=== PATIENT | female | born 1995 | race Caucasian/White ===

== ENCOUNTER 2018-10-04 19:15 | Emergency (ER) | payer MEDICAID, OTHER ==
[~2018-10-04] VITALS: Ht 162.6 cm; Wt 98.9 kg
[2018-10-04] MEDS ORDERED: ONDANSETRON 4 MG/2 ML (SDV) Z0FRAN IVP STA (19:39)
[2018-10-04] MEDS ORDERED: APAP 300 MG/CODEINE 30 MG (TYLENOL #3) TAB PO STA (19:39)
[2018-10-04] MEDS ORDERED: NS IV 1000 ML 1,000 ML IV SCH (19:45)
--- NOTE | 2018-10-04 20:00 | NUR ---
PT. REPORTED SHE HAS HAD CONTRACTIONS FOR 2 DAYS 5 MIN. APART LASTING 1 MIN. SHE REPORTED SHE WAS DILATED TO A 1 ON FRIDAY.
[2018-10-04 20:02] LABS: HEMATOCRIT 33 % (35-52); HEMOGLOBIN 10.4 G/DL (11.5-16.0); MEAN CORPUSCULAR HEMOGLOBIN 27 PG (25-34); MEAN CORPUSCULAR VOLUME 86 FL (80-99)
[2018-10-04 20:03] LABS: BASOPHILS % (AUTO) 0 % (0-10); EOSINOPHILS % (AUTO) 0 % (0-10); LYMPHOCYTES # (AUTO) 2.1 X 10^3 (1.0-4.0); LYMPHOCYTES % (AUTO) 30 % (12-44); MEAN CORPUSCULAR HGB CONC 32 G/DL (32-36); MEAN PLATELET VOLUME 13.4 FL (7.4-10.4); MONOCYTES # (AUTO) 0.6 X 10^3 (0.0-1.0); MONOCYTES % (AUTO) 8 % (0-12); NEUTROPHILS # (AUTO) 4.3 X 10^3 (1.8-7.8); NEUTROPHILS % (AUTO) 61 % (42-75); PLATELET COUNT 166 10^3/uL (130-400); RED CELL DISTRIBUTION WIDTH 13.4 % (10.0-14.5)
--- NOTE | 2018-10-04 20:03 | ED General ---
General Chief Complaint: Abdominal/GI Problems Stated Complaint: VOMITTING Nursing Triage Note: PT. WAS BROUGHT IN BY EMS WITH THE C/O VOMITING FOR 2 DAYS. THE PATIENT IS 39 WEEKS . SHE HAD C/O BEING SOB. PT REPORTS SHE HAS ANXIETY AND DEPRESSION AND GEST. DIABETIC HER HISTORY. PT. WAS FOUND SITTING ON THE BATHROOM FLOOR STATED SHE HAD VOMITED AND HAD PASSED OUT HITTING HER FOREHEAD ON THE TOILET. PT. C/O ABD PAIN. FHR WAS 140 UPON ARRIVAL. Nursing Sepsis Screen: No Definite Risk Source of Information: Patient History of Present Illness Date Seen by Provider: Oct 04, 2018 Time Seen by Provider: 19:15 Initial Comments 23-year-old female presenting with complaints of feeling short of breath and vomiting for the last 2 days. She states that she cannot keep anything down. However here she has had no vomiting in the emergency department. She also feels that she is having contractions in the last few days. She denies having any gush of fluid or bleeding from the vaginal area. She is continuing to feel the baby move. She denies any pain with urination. She has had no fever or chills. She states that she has been taking Zofran at home but it has not been helping. She last saw Dr. Mendieta and was only dilated centimeter. Allergies and Home Medications Allergies Coded Allergies: No Known Drug Allergies (Unverified , 10/04/18) Patient Home Medication List Home Medication List Reviewed: Yes Review of Systems Review of Systems Constitutional: No chills, No fever; weakness (generalized) EENTM: no symptoms reported Respiratory: No hemoptysis, No orthopnea, No phlegm; short of breath; No stridor, No wheezing Cardiovascular: no symptoms reported; No palpitations Gastrointestinal: abdominal pain (over her uterus), diarrhea, nausea, vomiting Genitourinary: no symptoms reported; No decreased output, No discharge, No dysuria, No frequency, No hematuria, No hesitancy, No incontinence, No nocturia Expected Date of Delivery: Oct 24, 2018 Musculoskeletal: no symptoms reported Skin: no symptoms reported Psychiatric/Neurological: No Symptoms Reported Hematologic/Lymphatic: No Symptoms Reported Immunological/Allergic: no symptoms reported Past Lsifqgo-Kdymlh-Jxadez Hx Past Med/Social Hx: Reviewed Nursing Past Med/Soc Hx Patient Social History Recent Foreign Travel: No Contact w/Someone Who Travel: No Recent Infectious Disease Expo: No Past Medical History : Yes Expected Date of Delivery: Oct 24, 2018 Hx : 3 Hx Para: 1 Hx Total # of Abortions (Sp): 1 Physical Exam Vital Signs Vital Signs - First Documented 10/04/18 19:20 Temp 97.3 Pulse 88 Resp 24 B/P (MAP) 149/82 (104) Pulse Ox 100 O2 Delivery Room Air Capillary Refill : Less Than 3 Seconds Height, Weight, BMI Height: 5'4.00" Weight: 218lbs. oz. 98.330235lp; BMI Method:Stated General Appearance: WD/WN, Anxious HEENT: PERRL/EOMI, Normal ENT Inspection, Pharynx Normal, Moist Mucous Membranes Neck: Full Range of Motion, Normal Inspection, Non Tender, Supple Respiratory: Chest Non Tender, Lungs Clear, Normal Breath Sounds, No Accessory Muscle Use, No Respiratory Distress Cardiovascular: Regular Rate, Rhythm, Normal Peripheral Pulses Gastrointestinal: Normal Bowel Sounds, No Organomegaly, Soft, Other (gravid uterus that is tender to palpation) Back: Normal Inspection, No CVA Tenderness, No Vertebral Tenderness Extremity: Normal Capillary Refill, Normal Inspection, Non Tender, No Calf Tenderness Neurologic/Psychiatric: Alert, Oriented x3, No Motor/Sensory Deficits Skin: Normal Color, Warm/Dry Progress/Results/Core Measures Suspected Sepsis Recent Fever Within 48 Hours: No Infection Criteria Present: None New/Unexplained Altered Menta: No Sepsis Screen: No Definite Risk SIRS Temperature:97.3 Pulse: 88 Respiratory Rate: 24 Laboratory Tests 10/04/18 19:50: White Blood Count 7.0 Blood Pressure 149 /82 Mean: 104 Laboratory Tests 10/04/18 19:50: Creatinine 0.65, Platelet Count 166, Total Bilirubin 0.8 Results/Orders Lab Results Laboratory Tests Test 10/04/18 19:50 Range/Units White Blood Count 7.0 4.3-11.0 10^3/uL Red Blood Count 3.80 L 4.35-5.85 10^6/uL Hemoglobin 10.4 L 11.5-16.0 G/DL Hematocrit 33 L 35-52 % Mean Corpuscular Volume 86 80-99 FL Mean Corpuscular Hemoglobin 27 25-34 PG Mean Corpuscular Hemoglobin Concent 32 32-36 G/DL Red Cell Distribution Width 13.4 10.0-14.5 % Platelet Count 166 130-400 10^3/uL Mean Platelet Volume 13.4 H 7.4-10.4 FL Neutrophils (%) (Auto) 61 42-75 % Lymphocytes (%) (Auto) 30 12-44 % Monocytes (%) (Auto) 8 0-12 % Eosinophils (%) (Auto) 0 0-10 % Basophils (%) (Auto) 0 0-10 % Neutrophils # (Auto) 4.3 1.8-7.8 X 10^3 Lymphocytes # (Auto) 2.1 1.0-4.0 X 10^3 Monocytes # (Auto) 0.6 0.0-1.0 X 10^3 Eosinophils # (Auto) 0.0 0.0-0.3 10^3/uL Basophils # (Auto) 0.0 0.0-0.1 10^3/uL Sodium Level 140 135-145 MMOL/L Potassium Level 3.9 3.6-5.0 MMOL/L Chloride Level 102 98-107 MMOL/L Carbon Dioxide Level 22 21-32 MMOL/L Anion Gap 16 H 5-14 MMOL/L Blood Urea Nitrogen 4 L 7-18 MG/DL Creatinine 0.65 0.60-1.30 MG/DL Estimat Glomerular Filtration Rate > 60 BUN/Creatinine Ratio 6 Glucose Level 82 70-105 MG/DL Calcium Level 8.8 8.5-10.1 MG/DL Corrected Calcium 9.6 8.5-10.1 MG/DL Total Bilirubin 0.8 0.1-1.0 MG/DL Aspartate Amino Transf (AST/SGOT) 25 5-34 U/L Alanine Aminotransferase (ALT/SGPT) 21 0-55 U/L Alkaline Phosphatase 424 H 40-136 U/L Total Protein 5.9 L 6.4-8.2 GM/DL Albumin 3.0 L 3.2-4.5 GM/DL Lipase 25 8-78 U/L My Orders Orders - ELIU ROMANO MD Comprehensive Metabolic Panel (10/04/18 19:39) Lipase (10/04/18 19:39) Ua Culture If Indicated (10/04/18 19:39) Ed Iv/Invasive Line Start (10/04/18 19:39) Cbc With Automated Diff (10/04/18 19:39) Ns Iv 1000 Ml (Sodium Chloride 0.9%) (10/04/18 19:45) Ondansetron Injection (Zofran Injectio (10/04/18 19:39) Acetaminophen/Codeine Tablet (Tylenol W/ (10/04/18 19:39) Vital Signs/I&O 10/04/18 10/04/18 19:20 20:42 Temp 97.3 97.3 Pulse 88 88 Resp 24 24 B/P (MAP) 149/82 (104) 144/82 (102) Pulse Ox 100 100 O2 Delivery Room Air Room Air 10/05/18 00:00 Intake Total 400 ml Balance 400 ml Capillary Refill : Less Than 3 Seconds Blood Pressure Mean: 104 Progress Note #1: Progress Note Feel heart tones were obtained and were in the 140s. She has had no vomiting here in the emergency Department her ambulance. She was given IV fluids for hydration. In order of Zofran for nausea and Tylenol No. 3 to help with her symptoms. Discussed with Dr. Mendieta on patient's presentation. He recommended fluids and treating her pain. If she had concerns for being in labor and she may need to go to the [facility]. Will update patient as the rest of her tests come back. Progress Note #2: Progress Note Labs are stable without acute significant abnormalities. Before I had a chance to review her test results with her set up any further plan her treatment p atient advised the nurse that she was leaving [facility] and she did not wait to discuss any further treatment or why she was leaving AGAINST MEDICAL ADVICE with myself. Departure Impression Primary Impression: Nausea and vomiting during Additional Impression: Anxiety Disposition: 07 AGAINST MEDICAL ADVICE Condition: Against Medical Advice Departure-Patient Inst. Referrals: NO,LOCAL PHYSICIAN (PCP/Family) Primary Care Physician ELIU ROMANO MD Oct 04, 2018 20:03
--- NOTE | 2018-10-04 20:11 | NUR ---
PT. REPORTED SHE HAS HAD NO LEAKING OF FLUIDS OR BLOOD.
[2018-10-04 20:23] LABS: SODIUM 140 MMOL/L (135-145)
[2018-10-04 20:24] LABS: ALANINE AMINOTRANSFERASE 21 U/L (0-55); ALKALINE PHOSPHATASE 424 U/L (40-136); BILIRUBIN,TOTAL 0.8 MG/DL (0.1-1.0); BUN/CREATININE RATIO 6; CALCIUM 8.8 MG/DL (8.5-10.1); CARBON DIOXIDE 22 MMOL/L (21-32); CHLORIDE 102 MMOL/L (98-107); CREATININE SERUM 0.65 MG/DL (0.60-1.30); GFR ESTIMATED > 60; GLUCOSE 82 MG/DL (70-105); POTASSIUM 3.9 MMOL/L (3.6-5.0); TOTAL PROTEIN 5.9 GM/DL (6.4-8.2)
[2018-10-04 20:25] LABS: LIPASE 25 U/L (8-78)
--- NOTE | 2018-10-04 20:40 | NUR ---
PT. WAS WANTING TO KNOW WHAT TREATMENT THE PATIENT HAS RECCEIVED. HE STATED WHILE CUSSING THAT THIS HAPPENS EVERYTIME SHE IS IN THE HOSPITAL SHE NEVER GETS ANYTHING TO STOP HER PAIN AND SAID HE DID NOT WANT ANYTHING ELSE FROM DOCTOR MARVIN AND HE WAS GOING TO TAKE THE PATIENT TO [facility] AND GET ANOTHER DOCTOR. IV WAS DISCONTINUED AND THE PATIENT SIGNED AMA PAPERS AND LEFT.
[2018-10-04 20:42] VITALS: BP 144/82
== END 2018-10-04 20:53 | disposition left against medical advice (07) ==
LOC: ER FS 19:18
DX: O21.9 Vomiting of pregnancy, unspecified (principal); O99.343 Other mental disorders complicating pregnancy, third trimester; F41.9 Anxiety disorder, unspecified; Z3A.00 Weeks of gestation of pregnancy not specified
CPT/HCPCS: 36415; 80053; 83690; 85025; 96374